=== PATIENT | female | born 1955 | race Caucasian/White ===

== ENCOUNTER 2018-03-06 19:44 | Emergency (ER) | payer OTHER ==
[~2018-03-06] VITALS: Ht 154.9 cm; Wt 52.2 kg
[2018-03-06] MEDS ORDERED: BUPROPION HCL 150 MG (20:15)
[2018-03-06] MEDS ORDERED: LIDOCAINE VISCUS 2% 15 ML UDC MM ONE (20:15)
[2018-03-06] MEDS ORDERED: MAG HYDROX/AL HYDROX/SIMETH 30 ML LIQUID UDC PO ONE (20:15)
[2018-03-06] MEDS ORDERED: LORAZEPAM 1 MG (20:15)
[2018-03-06] MEDS ORDERED: DESIPRAMINE HCL 75 MG (20:15)
[2018-03-06] MEDS ORDERED: FETZIMA 80 MG (20:15)
[2018-03-06] MEDS ORDERED: URSODIOL 500 MG (20:15)
[2018-03-06] MEDS ORDERED: MAG HYDROX/AL HYDROX/SIMETH 30 ML LIQUID UDC ONE (20:17)
[2018-03-06] MEDS ORDERED: LIDOCAINE VISCUS 2% 15 ML UDC ONE (20:18)
[2018-03-06] MEDS ORDERED: ONDANSETRON 4 MG/2 ML VIAL ONE (20:50)
[2018-03-06] MEDS ORDERED: MORPHINE SULFATE 4 MG/1 ML DISP.SYRIN ONE (20:50)
[2018-03-06] MEDS ORDERED: ONDANSETRON 4 MG/2 ML VIAL IM ONE (21:00)
[2018-03-06] MEDS ORDERED: MORPHINE SULFATE 4 MG/1 ML DISP.SYRIN IM ONE (21:00)
[2018-03-06] MEDS ORDERED: LORAZEPAM 2 MG/1 ML VIAL ONE (21:06)
[2018-03-06] MEDS ORDERED: LORAZEPAM 2 MG/1 ML VIAL IM ONE (21:15)
--- NOTE | 2018-03-06 21:53 | NUR ---
Patient discharged to home in stable conditon. Written and verbal after care instructions given. Patient verbalizes understanding of instructions. Pt ambulated out of ER in steady gait accompanied by who will drive home. All belongings with pt. VSS. NAD noted.
[2018-03-06 21:54] VITALS: BP 118/84
== END 2018-03-06 21:56 | disposition home or self-care (01) ==
LOC: ER 19:44
DX: T17.228A Food in pharynx causing other injury, initial encounter (principal)
CPT/HCPCS: 70360; A4663; J2060; J2270; J2405

== ENCOUNTER 2018-10-02 07:55 | Emergency (ER) | payer MEDICARE, OTHER ==
[~2018-10-02] VITALS: Ht 160 cm; Wt 54.4 kg
[~2018-10-02 07:55] MED LIST: BUPROPION HCL 150 MG; DESIPRAMINE HCL 75 MG; FETZIMA 80 MG; LORAZEPAM 1 MG; URSODIOL 500 MG
--- NOTE | 2018-10-02 09:00 | NUR ---
Patient discharged to home in stable conditon. Written and verbal after care instructions given. Patient verbalizes understanding of instructions. Patient ambulated with stable gait.
[2018-10-02 09:09] VITALS: BP 120/72
== END 2018-10-02 09:09 | disposition home or self-care (01) ==
LOC: ER 07:55
DX: M54.31 Sciatica, right side (principal); M25.551 Pain in right hip; Z79.899 Other long term (current) drug therapy
CPT/HCPCS: 73502; A4663